=== PATIENT | male | born 1950 | race Caucasian/White ===

== ENCOUNTER → 2022-03-30 | Outpatient (CLI) | payer OTHER ==
[~2022-03-30] MED LIST: ASPIR 8181 MG PO; GLUCOPHAGE500 MG PO; ISOSORBIDE MONO30 MG PO; LEVAQUIN500 MG PO; LIPITOR TAB 2020 MG PO; LOTENSIN TAB 1010 MG PO; METOPROLOL TART25 MG PO; PLAVIX 75 MG TA75 MG PO; PROVENTIL HFA6.7 GM INH; ROBITUSSIN DM U10 ML PO
== END ==
LOC: EMI 09:51
DX: R41.3 Other amnesia (principal); I25.2 Old myocardial infarction
CPT/HCPCS: 70551